=== PATIENT | male | born 1965 ===

== ENCOUNTER 2016-11-22 20:09 | Emergency (ER) | payer OTHER ==
[2016-11-22 20:26] VITALS: TEMP 98.2
[2016-11-22] MEDS ORDERED: IPRATROPIUM/ALBUTEROL 3 ML DEYVIAL IH ONE (20:48)
[2016-11-22] MEDS ORDERED: ALBUTEROL INH PREPACK MDI TAKEHOME ONE (20:48)
--- NOTE | 2016-11-22 20:48 | EDPHY ---
H & P Stated Complaint: [facility], chest pain/cough/sob for weeks Time Seen by Provider: 11/22/16 20:41 HPI/ROS: CHIEF COMPLAINT: Alcohol withdrawal, difficulty breathing HISTORY OF PRESENT ILLNESS: This patient is a 51 y/o male arriving from the [facility] complaining of difficulty breathing, cough, and alcohol withdrawal. He has had a cough that is sometimes dry and sometimes productive over the past few weeks. He endorses fever, runny nose, and sore throat. Over the last month, his chest has felt like it "weighs 1000 pounds". This sensation is constant x weeks and does not change with exertion. He recently moved here from [place], and was diagnosed with pneumonia two months ago there. He denies vomiting, diarrhea, urinary complaints, or other associated symptoms. REVIEW OF SYSTEMS: A 10 point review of systems was performed and is negative with the exception of the elements mentioned in the history of present illness. - Personal History Current Tetanus/Diphtheria Vaccine: Yes Current Tetanus Diphtheria and Acellular Pertussis (TDAP): Yes - Medical/Surgical History PMH: 1. Chronic L4-L5 back pain. 2. Depression. Hx Asthma: No Hx Chronic Respiratory Disease: No Hx Diabetes: No Hx Cardiac Disease: No Hx Renal Disease: No Hx Cirrhosis: No Hx Alcoholism: Yes Hx HIV/AIDS: No Hx Splenectomy or Spleen Trauma: No Other PMH: PMH: PNA, ETOH abuse, SBO,. PSH: back, knee, abd for SBO - Social History Smoking Status: Heavy smoker Additional Social History: Recently moved from [place]. Current heavy tobacco use. Alcohol use. - Physical Exam Exam: General Appearance: Alert, no distress Eyes: Pupils equal and round, no conjunctival pallor or injection ENT, Mouth: Mucous membranes moist Neck: Normal inspection Respiratory: Scattered expiratory wheezes Cardiovascular: Regular rate and rhythm Gastrointestinal: Abdomen is soft and non- tender Neurological: A&O, nonfocal, normal gait Skin: Warm and dry, no rash Extremities: Nontender, no pedal edema Psychiatric: Appears depressed Constitutional: Initial Vital Signs Temperature (C) 36.8 C 11/22/16 20:22 Heart Rate 78 11/22/16 20:22 Respiratory Rate 22 H 11/22/16 20:22 Blood Pressure 142/75 H 11/22/16 20:22 O2 Sat (%) 97 11/22/16 20:22 O2 Delivery Mode Room Air Allergies/Adverse Reactions: No Known Allergies Allergy (Unverified 11/22/16 20:26) Home Medications: Medication Instructions Recorded Azithromycin [Zithromax] 250 mg PO DAILY #6 tab 11/22/16 Medical Decision Making - Diagnostics EKG Interpretation: EKG interpreted by me reveals sinus rhythm, rate 88, LAD and borderline R wave progression in anterior leads. Imaging Results: Chest X-Ray 11/22/16 20:41 Impression: 1. Suspect airways disease. 2. See above report for additional findings. Imaging: I viewed and interpreted images myself ED Course/Re-evaluation: 51 y/o male presents with cough, shortness of breath, and chest discomfort ongoing for the last few weeks. Exam reveals scattered expiratory wheezes. Plan for EKG, chest x-ray, and DuoNeb treatment. Chest x-ray negative for infiltrate. EKG shows sinus rhythm. Patient's lungs are clear after DuoNeb treatment, but he states his breathing does not feel meaningfully improved. He does feel well enough for discharge. Plan to [facility] back to [facility] in good condition with prescription for Zithromax and for Librium for alcohol withdrawal. Differential Diagnosis: Differential diagnosis includes though it is not limited to pneumonia, pneumothorax, pulmonary embolism, aortic dissection, pericarditis, acute coronary syndrome. - Data Points Medications Given: Discontinued Medications Albuterol Sulfate (Proventil Inh Prepack) 1 mdi TAKEHOME EDNOW ONE Stop: 11/22/16 20:49 Last Admin: 11/22/16 21:07 Dose: 1 mdi Albuterol/Ipratropium (Duoneb) 3 ml IH EDNOW ONE Stop: 11/22/16 20:49 Last Admin: 11/22/16 21:05 Dose: 3 ml Chlordiazepoxide (Librium 25 Mg Prepack#6) 1 btl TAKEHOME EDNOW ONE Stop: 11/22/16 21:36 Last Admin: 11/22/16 21:44 Dose: 1 btl Departure - Departure Disposition: Home, Routine, Self-Care Clinical Impression: Acute bronchitis, Alcohol withdrawal Condition: Good Instructions: Chlordiazepoxide/Clidinium (By mouth), Albuterol (By breathing), Acute Bronchitis (ED), Alcohol Withdrawal (ED) Additional Instructions: 1. Take your Zithromax as prescribed. It is important to finish your entire course of antibiotics even if you are feeling better. 2. Proceed back to the [facility] as planned. We have provided you with a prescription for Librium. Take one tablet every six hours as needed for withdrawal. 3. Follow up with [facility] for continued symptoms. They have walk-in appointments for the homeless at the following days/locations. No appointment is needed. Saturday 8-10 am @ [facility] 11 AM-1 PM @ [facility] Saturday 8-10:30 AM @ [facility] Saturday 8-10 AM @ [facility] 2-4 PM @ [facility] Saturday 8-10 AM @ [facility] Referrals: [facility],. [Clinic] - As per Instructions Prescriptions: Azithromycin [Zithromax] 250 mg PO DAILY #6 tab Report Scribed for: Fani Newman Report Scribed by: Freda Medina Date of Report: 11/22/16 Time of Report: 20:48 Physician Review and Approval Statement: 11/22/16 20:48 Portions of this note were transcribed by a associate medical director. I personally performed a history, physical exam, medical decision making, and confirmed accuracy of information the transcribed note.
--- NOTE | 2016-11-22 20:51 | CPEKG ---
Heart Rate: 88 RR Interval: 682 P-R Interval: 184 QRSD Interval: 94 QT Interval: 368 QTC Interval: 446 P [place]: 20 QRS [place]: -32 T Wave [place]: 37 EKG Severity - BORDERLINE ECG - EKG Impression: SINUS RHYTHM EKG Impression: LEFT AXIS DEVIATION EKG Impression: BORDERLINE R WAVE PROGRESSION, ANTERIOR LEADS Electronically Signed By: Fani Newman 22-Nov-2016 21:53:01
[2016-11-22] MEDS ORDERED: CHLORDIAZEPOXIDE 25MG PREPK#6 BTL TAKEHOME ONE (21:35)
[2016-11-22 21:50] VITALS: BP 138/88; PULSE 88; RESP 18; O2SAT 92
== END 2016-11-22 21:53 | disposition home or self-care (01) ==
DX: J20.9 Acute bronchitis, unspecified (principal); F10.239 Alcohol dependence with withdrawal, unspecified; F17.200 Nicotine dependence, unspecified, uncomplicated